=== PATIENT | male | born 1965 | race Caucasian/White ===

== ENCOUNTER 2018-02-12 09:09 | Day surgery (SDC) | payer BC ==
[~2018-02-12] VITALS: Ht 176.5 cm; Wt 70.3 kg
[2018-02-12] VITALS (7 sets, daily range): BP systolic 102–121; BP diastolic 56–72
--- NOTE | 2018-02-12 08:23 | Anethesia Preoperative Eval ---
Anesthesia Pre-op PMH/ROS General Date of Evaluation: Feb 12, 2018 Time of Evaluation: 09:27 Anesthesiologist: robert ASA Score: ASA 2 Mallampati Score Class I : Soft palate, uvula, fauces, pillars visible Class II: Soft palate, uvula, fauces visible Class III: Soft palate, base of uvula visible Class IV: Only hard plate visible Mallampati Classification: Class II Surgeon: maria guadalupe Diagnosis: colon screening Surgical Procedure: colonoscopy Anesthesia History: none Social History: smoking - nonsmoker, alcohol use Family History: no anesthesia problems Allergies: Coded Allergies: NO KNOWN DRUG ALLERGIES (Verified Allergy, Unknown, 02/12/18) Medications: see eMAR Patient NPO?: Yes Past Medical History Neurologic/Psychiatric: Reports: other - headache HEENT: Reports: other - decreased visual acuity Musculoskeletal/Integumentary: Reports: other - back pain PSxH Narrative: nasal surgery Anesthesia Pre-op Phys. Exam Physician Exam Constitutional: NAD Neurologic: CN 2-12 intact Cardiovascular: RRR Respiratory: CTA Gastrointestinal: S/NT/ND Airway Exam Mallampati Score: Class II MO: full Neck: flexible TMD: 2fb ROM: full Anesthesia Pre-op A/P Risk Assessment & Plan Assessment: asa2 Plan: mac Status Change Before Surgery: No Pre-Antibiotics Drug: Vianney Sebastian MD Feb 12, 2018 08:23
[2018-02-12] MEDS ORDERED: Atropine Inj 1mg/10ml Syr IV PRN (09:45)
[2018-02-12] MEDS ORDERED: fentaNYL 100 mcg/2 mL IV PRN (09:45)
[2018-02-12] MEDS ORDERED: DiphenhydrAMINE 50mg/ml Inj IVP PRN (09:45)
[2018-02-12] MEDS ORDERED: Midazolam 2mg/2ml Inj IVP PRN (09:45)
[2018-02-12] MEDS ORDERED: Propofol 200mg/20ml IV ONE (09:50)
[2018-02-12] MEDS ORDERED: Lidocaine 1% MPF 10mg/ml 5ml ONE (09:50)
[2018-02-12] MEDS ORDERED: NKM (09:55)
--- NOTE | 2018-02-12 10:13 | Short Stay Surgery H&P ---
History of Present Illness History of Present Illness Chief Complaint See typed H&P HPI Duran Trammell is a 52 year old male who was admitted on for Screening Patient History Allergies: Coded Allergies: NO KNOWN DRUG ALLERGIES (Verified Allergy, Unknown, 02/12/18) Medication History Scheduled No Known Medications* (NKM - No Known Medications*), 0 ., (Reported) Physical Exam Vital Signs Last Vital Signs Date Time Temp Pulse Resp B/P (MAP) Pulse Ox O2 Delivery O2 Flow Rate FiO2 02/12/18 09:53 Room Air 02/12/18 09:42 98.3 62 18 121/72 100 Plan Attestation Are the patient's medical conditions optimized for surgery? Dustin Phillips MD Feb 12, 2018 10:13
--- NOTE | 2018-02-12 10:14 | Pre-Procedure Note/Attestation ---
Pre-Procedure Note/Attestation Complete Prior to Procedure Planned Procedure: not applicable Procedure Narrative: colon Indications for Procedure Pre-Operative Diagnosis: screen Attestation I attest that I discussed the nature of the procedure; its benefits; risks and complications; and alternatives (and the risks and benefits of such alternatives ), prior to the procedure, with the patient (or the patient's legal policy services representative). I attest that, if there was a reasonable possibility of needing a blood transfusion, the patient (or the patient's legal policy services representative) was given the [facility] standardized written summary, pursuant to the [employer] Blood Safety Act ([place] Health and Safety Code # 1645, as amended). I attest that I re-evaluated the patient just prior to the surgery and that there has been no change in the patient's H&P, except as documented below: Dustin Phillips MD Feb 12, 2018 10:14
--- NOTE | 2018-02-12 10:51 | Endoscopy Procedure Note ---
Endoscopy Procedure Note General Indication for Procedure: screen Procedures Performed: colonoscopy Operative Findings/Diagnosis: normal Specimen: none Pt Tolerated Procedure Well: Yes Estimated Blood Loss: none Anesthesia Anesthesiologist: Kishan turcios Anesthesia: MAC Medications Medication Given: see anesthesia record Inserted Devices Implant(s) used?: No GI Core Measures 50 yrs or older w/o bx or poly: Yes 10yrs. F/U not recommended: Yes If not recommended, why?: 10 yrs. F/U needed: Yes 18 years or older w/prev. colo: Yes <3yrs. since last colonoscopy: No Med reason:<3 yrs.: System Reason:<3 yrs.: Last colonoscopy >= to 3yrs: Yes Dustin Phillips MD Feb 12, 2018 10:51
--- NOTE | 2018-02-12 10:58 | Brief Operative Note ---
Immediate Post Operative Note Operative Note Chief Complaint: screening Pre-op Diagnosis: screen Procedure: screening colon Post-op Diagnosis: normal Surgeon: maria guadalupe Anesthesiologist: Kishan turcios Anesthesia: moderate sedation Specimen: none Complications: none Condition: stable Fluids: given Estimated Blood Loss: none Drains: none Implant(s) used?: No Dustin Phillips MD Feb 12, 2018 10:58
--- NOTE | 2018-02-12 10:59 | Immediate Post-Op Evaluation ---
Immediate Post-Op Evalulation Immediate Post-Op Evalulation Procedure: colonoscopy Date of Evaluation: Feb 12, 2018 Time of Evaluation: 10:57 IV Fluids: 200ml lr Blood Products: none Estimated Blood Loss: negligible Blood Pressure Systolic: 102 Blood Pressure Diastolic: 62 Pulse Rate: 56 Respiratory Rate: 18 O2 Sat by Pulse Oximetry: 100 Temperature (Fahrenheit): 97.4 Pain Score (1-10): 0 Nausea: No Vomiting: No Complications none Patient Status: awake, reacts, patent Hydration Status: adequate Drug: Vianney Sebastian MD Feb 12, 2018 10:59
--- NOTE | 2018-02-12 11:00 | 48 Hour Post Anesthesia Eval ---
Post Anesthesia Evaluation Procedure: colonoscopy Date of Evaluation: Feb 12, 2018 Time of Evaluation: 10:59 Blood Pressure Systolic: 102 0: 60 Pulse Rate: 55 Respiratory Rate: 18 Temperature (Fahrenheit): 97.4 O2 Sat by Pulse Oximetry: 100 Airway: patent Nausea: No Vomiting: No Pain Intensity: 0 Hydration Status: adequate Cardiopulmonary Status: stable Mental Status/LOC: patient returned to baseline Post-Anesthesia Complications: none Follow-up care needed: N/A Vianney Fleming MD Feb 12, 2018 11:00
--- NOTE | 2018-02-13 07:45 | Procedure Note ---
DATE OF PROCEDURE: 02/12/2018 GASTROENTEROLOGY PROCEDURE REPORT PROCEDURE: Screening colonoscopy. SURGEON: Dustin Phillips M.D. ANESTHESIA: Please see the separate anesthesiologist notes for details. PRE-ENDOSCOPIC DIAGNOSIS: Screening. POST-ENDOSCOPIC DIAGNOSIS: Normal colonoscopy. DESCRIPTION OF PROCEDURE: The procedure, its risks, indications, alternatives, and possible complications including, but not limited to bleeding, infection, perforation, , and anesthesia complications were explained to the patient and informed consent was obtained. The patient was sedated in the left lateral decubitus position. The rectal exam was done. The diagnostic colonoscope was introduced into the rectum and advanced to the cecum without difficulty. The cecum was identified by the appearance of the ileocecal valve. The colonoscope was then gradually withdrawn and the mucosa examined carefully. Examination was performed concluding the retroflexed view of the rectum. No polyps or other abnormalities were seen during this examination. The patient was left to recovery in good condition. COMPLICATIONS: None. RECOMMENDATIONS: 1. Resume oral diet. 2. Follow up with primary physician. Dustin Phillips M.D. DR: MARY JOB#: [id number] CC: Dustin Phillips M.D.; Fax#: [phone]
== END 2018-02-12 11:35 | disposition home or self-care (01) ==
LOC: GAS 09:09
DX: Z12.11 Encounter for screening for malignant neoplasm of colon (principal); M19.90 Unspecified osteoarthritis, unspecified site; M51.27 Other intervertebral disc displacement, lumbosacral region; F41.9 Anxiety disorder, unspecified
CPT/HCPCS: 45378; J2704; 94003; 94150